=== PATIENT | female | born 1950 | race Caucasian/White ===

== ENCOUNTER 2024-01-04 11:35 | Outpatient (CLI) | payer MEDICARE ==
[2024-01-04 13:13] LABS: ALBUMIN 3.7 g/dL (3.4-5.0); BILIRUBIN,TOTAL 1.1 mg/dL (0.2-1.0); CALCIUM, SERUM 9.2 mg/dL (8.5-10.1); CREATININE 0.9 mg/dL (0.6-1.3); POTASSIUM 3.8 mmol/L (3.5-5.1); TOTAL PROTEIN, SERUM 7.3 g/dL (6.4-8.2)
[2024-01-04 13:14] LABS: INR 1.02 (0.91-1.10); PROTHROMBIN TIME 10.8 SECS (9.2-11.1)
[2024-01-04 13:27] LABS: BASOPHILS % (AUTO) 0.5 % (0.0-2.0); EOSINOPHILS # (AUTO) 0.1 K/uL (0.0-0.7); EOSINOPHILS % (AUTO) 1.4 % (0.0-6.0); HEMATOCRIT 43 % (33-45); HEMOGLOBIN 14.7 g/dL (11.5-14.8); LYMPHOCYTES % (AUTO) 34.8 % (20.0-44.0); MEAN CORPUSCULAR HEMOGLOBIN 32 PG (26.0-33.0); MEAN CORPUSCULAR HGB CONC 34 g/dl (31.0-36.0); MEAN CORPUSCULAR VOLUME 93 fL (82-100); MONOCYTES # (AUTO) 0.6 K/uL (0.1-1.30); MONOCYTES % (AUTO) 9.7 % (2.0-12.0); NEUTROPHILS # (AUTO) 3.1 K/uL (1.8-8.9); NEUTROPHILS % (AUTO) 53.6 % (43.0-81.0); PLATELET COUNT (AUTO) 188 K/uL (150-450); RED BLOOD CELL COUNT(AUTO) 4.62 MIL/uL (4.0-5.2); RED CELL DISTRIBUTION WIDTH 12.7 % (11.5-15.0); WHITE BLOOD COUNT (AUTO) 5.8 K/uL (4.3-11.0)
== END 2024-01-04 23:59 | disposition home or self-care (01) ==
LOC: RAD 11:35
PROVIDERS: ATTEND Internal Medicine Interventional Cardiology
DX: Z01.818 Encounter for other preprocedural examination (principal); D68.9 Coagulation defect, unspecified
CPT/HCPCS: 36415; 71046; 80053-TC; 85025-TC; 85610-TC

== ENCOUNTER 2024-01-13 07:19 | Inpatient (IN) | payer MEDICARE ==
[~2024-01-13] VITALS: Ht 162.6 cm; Wt 65.3 kg
[2024-01-13] MEDS ORDERED: ROSU10TA2 PO (07:44)
[2024-01-13] MEDS: GABAPENTIN 300 MG CAPSULE PO ONE ×2 (08:40→08:49)
[2024-01-13] MEDS: ACETAMINOPHEN 325 MG TABLET PO ONE ×2 (08:40→08:49)
[2024-01-13 09:00] VITALS: BP 105/56; TEMP 97.9; O2SAT 99
[2024-01-13] MEDS ORDERED: ACETAMINOPHEN 325 MG TABLET PO ONE (09:00)
[2024-01-13] MEDS ORDERED: GABAPENTIN 300 MG CAPSULE PO ONE (09:00)
[2024-01-13] MEDS ORDERED: FAMOTIDINE/PF INJ 20 MG/2 ML VIAL IV ONE (09:39)
[2024-01-13] MEDS ORDERED: FENTANYL PF 100MCG/2ML AMPUL ONE (09:39)
[2024-01-13] MEDS ORDERED: MIDAZOLAM HCL 2 MG/2ML VIAL ONE (09:39)
[2024-01-13] MEDS ORDERED: ROCURONIUM BROMIDE 50 MG/5 ML ONE (09:39)
[2024-01-13] MEDS ORDERED: dexaMETHasone SOD PHOSPHATE 0 ML ONE (10:03)
[2024-01-13] MEDS ORDERED: LIDOCAINE 2%-EPI 1:100,000 30 ML VIAL ONE (10:03)
[2024-01-13] MEDS ORDERED: VANCOMYCIN 1 GM VIAL ONE (10:04)
[2024-01-13 12:21] VITALS: BP 122/74; TEMP 97.2; O2SAT 96
[2024-01-13] MEDS ORDERED: HYDROMORPHONE 1 MG/1 ML DISP.SYRIN IV PRN (13:00)
[2024-01-13] MEDS ORDERED: ONDANSETRON HCL/PF 4 MG/2 ML VIAL IV PRN (13:00)
[2024-01-13] MEDS ORDERED: ACETAMINOPHEN 325 MG TABLET PO PRN ×2 (13:00→19:30)
[2024-01-13 16:13] VITALS: BP 128/75; TEMP 98.8; O2SAT 97
[2024-01-13] MEDS: MENTHOL/CETYLPYRD (CEPACOL) 1 LOZ LOZENGE PO PRN (17:32)
[2024-01-13] MEDS ORDERED: ONDANSETRON HCL/PF 4 MG/2 ML VIAL IVP PRN (19:30)
[2024-01-13] MEDS ORDERED: MAGNESIUM HYDROXIDE 30 ML UDC PO PRN (19:30)
[2024-01-13] MEDS ORDERED: MAG HYDROX/AL HYDROX/SIMETH 30 ML UDC PO PRN (19:30)
[2024-01-13] MEDS ORDERED: Z GUARD REMEDY 4 OZ OINT TP PRN (19:30)
[2024-01-13 20:02] VITALS: BP 125/83; TEMP 97.9; O2SAT 98
[2024-01-13] MEDS: VANCOMYCIN 1 GM in IV D5W 250ml IV SCH (21:28)
[2024-01-14] MEDS: IV NS 0.9% 1,000 ML IV PRN (03:36)
[2024-01-14 06:32] LABS: BASOPHILS % (AUTO) 0.1 % (0.0-2.0); HEMATOCRIT 40 % (33-45); HEMOGLOBIN 13.6 g/dL (11.5-14.8); LYMPHOCYTES # (AUTO) 1.1 K/uL (0.8-4.8); LYMPHOCYTES % (AUTO) 12.4 % (20.0-44.0); MEAN CORPUSCULAR HEMOGLOBIN 31 PG (26.0-33.0); MEAN CORPUSCULAR HGB CONC 34 g/dl (31.0-36.0); MEAN CORPUSCULAR VOLUME 92 fL (82-100); MONOCYTES # (AUTO) 0.7 K/uL (0.1-1.30); MONOCYTES % (AUTO) 8.1 % (2.0-12.0); NEUTROPHILS # (AUTO) 7.1 K/uL (1.8-8.9); NEUTROPHILS % (AUTO) 79.4 % (43.0-81.0); PLATELET COUNT (AUTO) 168 K/uL (150-450); RED BLOOD CELL COUNT(AUTO) 4.33 MIL/uL (4.0-5.2); RED CELL DISTRIBUTION WIDTH 12.7 % (11.5-15.0)
[2024-01-14 06:35] LABS: CALCIUM, SERUM 9.2 mg/dL (8.5-10.1); CREATININE 0.7 mg/dL (0.6-1.3); MAGNESIUM 2.3 mg/dL (1.8-2.4); PHOSPHORUS 3.4 mg/dL (2.5-4.9); POTASSIUM 4.3 mmol/L (3.5-5.1)
[2024-01-14 07:00] VITALS: BP 118/50; TEMP 97.9; O2SAT 98
== END 2024-01-14 12:15 | disposition home or self-care (01) | DRG 517 ==
LOC: DS 07:19 → MED 07:20
PROVIDERS: ADMIT Internal Medicine; ATTEND Internal Medicine
PROC: 0NBR0ZZ Excision of Maxilla, Open Approach (ICD-10-PCS; principal; 2024-01-13)
PROC: 09U Ear, Nose, Sinus, Supplement (ICD-10-PCS; 2024-01-13)
DX: S02.40DK Maxillary fracture, left side, subsequent encounter for fracture with nonunion (principal); M27.2 Inflammatory conditions of jaws; J32.0 Chronic maxillary sinusitis; M27.49 Other cysts of jaw; M19.90 Unspecified osteoarthritis, unspecified site; Z87.891 Personal history of nicotine dependence; D16.5 Benign neoplasm of lower jaw bone; J32.9 Chronic sinusitis, unspecified; X58.XXXD Exposure to other specified factors, subsequent encounter
CPT/HCPCS: 36415; 80048-TC; 83735-TC; 84100-TC; 85025-TC; A4223; G0378; J1100; J1885; J2250; J2405; J2704; J3010; J3370; J3490; J7030; J7050; J7060